=== PATIENT | female | born 1940 | race Caucasian/White ===

== ENCOUNTER 2021-09-02 15:39 | Inpatient (IN) ==
[2021-09-02] MEDS ORDERED: Ibuprofen 400 MG TABLET PO PRN (18:03)
[2021-09-02] MEDS: *HR* OxyCODONE Immed Rel 5 MG TABLET PO PRN (20:19)
[2021-09-02] MEDS ORDERED: methocarbamoL 500 MG TABLET PO SCH (21:00)
[2021-09-03] MEDS: *HR* Enoxaparin 40 MG/0.4 ML SYRINGE SQ SCH (06:10)
[2021-09-03] MEDS: *HR* OxyCODONE Immed Rel 5 MG TABLET PO PRN ×3 (06:41→20:41)
[2021-09-03 07:32] LABS: Eosinophils # 0.2 K/mcL (0.0-0.6); Eosinophils % 7.6 %; Hematocrit 39.3 % (35.3-44.9); Hemoglobin 12.5 g/dL (11.5-15.4); Immature Granulocytes % 0.3 % (0-4); Lymphocytes # 1.2 K/mcL (0.6-4.6); Lymphocytes % 39.8 %; Mean Corpuscular HGB Conc 31.8 g/dL (31.6-35.5); Mean Corpuscular Hemoglobin 29.9 pg (28.0-33.3); Mean Platelet Volume 9.8 fL (9.4-12.4); Monocytes # 0.2 K/mcL (0.0-1.3); Monocytes % 7.6 %; Neutrophils # 1.3 K/mcL (1.6-8.9); Platelet Count 131 K/mcL (140-400); Red Blood Count 4.18 M/mcL (3.82-4.97); Red Cell Distribution Width 13.5 % (11.5-14.5); Segmented Neutrophils % 43.7 %
[2021-09-03 07:57] LABS: Calcium 8.8 mg/dL (8.6-10.3); Potassium 3.8 mEq/L (3.5-5.1)
[2021-09-03] MEDS: Metoprolol XL (24 HR) Succ 50 MG TAB.ER.24H PO SCH (10:07)
[2021-09-03] MEDS: BuPROPion XL (24 HR) 150 MG TABLET PO SCH (10:07)
[2021-09-03] MEDS: Aspirin Enteric Coated 81 MG Tablet PO SCH (10:07)
[2021-09-03] MEDS: methocarbamoL 500 MG TABLET PO SCH (20:41)
[2021-09-03] MEDS: Gabapentin 100 MG CAPSULE PO SCH (20:41)
[2021-09-04] MEDS: *HR* Enoxaparin 40 MG/0.4 ML SYRINGE SQ SCH (06:25)
[2021-09-04] MEDS: methocarbamoL 500 MG TABLET PO SCH ×2 (08:44→20:07)
[2021-09-04] MEDS: BuPROPion XL (24 HR) 150 MG TABLET PO SCH (08:44)
[2021-09-04] MEDS: Gabapentin 100 MG CAPSULE PO SCH ×3 (08:44→20:06)
[2021-09-04] MEDS: Metoprolol XL (24 HR) Succ 50 MG TAB.ER.24H PO SCH (08:44)
[2021-09-04] MEDS: Aspirin Enteric Coated 81 MG Tablet PO SCH (08:44)
[2021-09-04] MEDS: *HR* OxyCODONE Immed Rel 5 MG TABLET PO PRN ×3 (08:50→20:55)
[2021-09-05] MEDS: *HR* Enoxaparin 40 MG/0.4 ML SYRINGE SQ SCH (06:27)
[2021-09-05] MEDS: Aspirin Enteric Coated 81 MG Tablet PO SCH (08:56)
[2021-09-05] MEDS: BuPROPion XL (24 HR) 150 MG TABLET PO SCH (08:57)
[2021-09-05] MEDS: Metoprolol XL (24 HR) Succ 50 MG TAB.ER.24H PO SCH (08:57)
[2021-09-05] MEDS: methocarbamoL 500 MG TABLET PO SCH ×2 (08:57→20:22)
[2021-09-05] MEDS: Gabapentin 100 MG CAPSULE PO SCH ×3 (08:57→20:23)
[2021-09-06] MEDS: *HR* Enoxaparin 40 MG/0.4 ML SYRINGE SQ SCH (05:32)
[2021-09-06] MEDS: Gabapentin 100 MG CAPSULE PO SCH ×3 (10:49→20:57)
[2021-09-06] MEDS: BuPROPion XL (24 HR) 150 MG TABLET PO SCH (10:49)
[2021-09-06] MEDS: Metoprolol XL (24 HR) Succ 50 MG TAB.ER.24H PO SCH (10:49)
[2021-09-06] MEDS: Aspirin Enteric Coated 81 MG Tablet PO SCH (10:49)
[2021-09-06] MEDS: Sennosides/Docusate Sodium TABLET PO PRN (10:50)
[2021-09-06] MEDS: methocarbamoL 500 MG TABLET PO SCH ×2 (10:50→20:57)
[2021-09-06] MEDS: *HR* OxyCODONE Immed Rel 5 MG TABLET PO PRN (10:50)
[2021-09-07] MEDS: *HR* Enoxaparin 40 MG/0.4 ML SYRINGE SQ SCH (06:26)
[2021-09-07] MEDS: Metoprolol XL (24 HR) Succ 50 MG TAB.ER.24H PO SCH (09:31)
[2021-09-07] MEDS: Aspirin Enteric Coated 81 MG Tablet PO SCH (09:31)
[2021-09-07] MEDS: BuPROPion XL (24 HR) 150 MG TABLET PO SCH (09:31)
[2021-09-07] MEDS: Gabapentin 100 MG CAPSULE PO SCH ×3 (09:32→19:47)
[2021-09-07] MEDS: methocarbamoL 500 MG TABLET PO SCH ×2 (09:32→19:47)
[2021-09-07] MEDS: *HR* OxyCODONE Immed Rel 5 MG TABLET PO PRN (09:38)
[2021-09-08] MEDS: *HR* Enoxaparin 40 MG/0.4 ML SYRINGE SQ SCH (05:51)
[2021-09-08] MEDS: methocarbamoL 500 MG TABLET PO SCH ×2 (09:20→20:09)
[2021-09-08] MEDS: Metoprolol XL (24 HR) Succ 50 MG TAB.ER.24H PO SCH (09:20)
[2021-09-08] MEDS: Gabapentin 100 MG CAPSULE PO SCH ×3 (09:21→20:09)
[2021-09-08] MEDS: Aspirin Enteric Coated 81 MG Tablet PO SCH (09:21)
[2021-09-08] MEDS: BuPROPion XL (24 HR) 150 MG TABLET PO SCH (09:21)
[2021-09-09] MEDS ORDERED: Benzonatate 100 MG CAPSULE PO PRN (00:31)
[2021-09-09] MEDS: *HR* Enoxaparin 40 MG/0.4 ML SYRINGE SQ SCH (05:51)
[2021-09-09] MEDS: Sennosides/Docusate Sodium TABLET PO PRN (07:27)
[2021-09-09] MEDS: methocarbamoL 500 MG TABLET PO SCH (07:27)
[2021-09-09] MEDS: Gabapentin 100 MG CAPSULE PO SCH (07:27)
[2021-09-09] MEDS: Metoprolol XL (24 HR) Succ 50 MG TAB.ER.24H PO SCH (07:27)
[2021-09-09] MEDS: BuPROPion XL (24 HR) 150 MG TABLET PO SCH (07:27)
[2021-09-09] MEDS: Aspirin Enteric Coated 81 MG Tablet PO SCH (07:27)
[2021-09-09 08:20] VITALS: BP 137/77; PULSE 62; RESP 17; TEMP 97.8; O2SAT 99
== END 2021-09-09 15:00 | disposition home or self-care (01) | DRG 560 ==
LOC: INPPIK 17:59
PROVIDERS: ADMIT Family Medicine; ATTEND Family Medicine